=== PATIENT | female | born 1980 | race Caucasian/White ===

== ENCOUNTER 2020-12-13 07:21 | Emergency (ER) | payer OTHER ==
[~2020-12-13] VITALS: Ht 165.1 cm; Wt 86.4 kg
[2020-12-13 07:28] VITALS: BP 104/65; PULSE 89; TEMP 98.2
[2020-12-13] MEDS ORDERED: XYZAL5 MG PO (07:40)
[2020-12-13] MEDS ORDERED: NORCO 325 MG-51 TAB PO (08:38)
== END 2020-12-13 08:52 | disposition home or self-care (01) ==
LOC: COL.ER 07:21
DX: S42.214A Unspecified nondisplaced fracture of surgical neck of right humerus, initial encounter for closed fracture (principal); F17.200 Nicotine dependence, unspecified, uncomplicated; Z88.2 Allergy status to sulfonamides; Z88.8 Allergy status to other drugs, medicaments and biological substances; W10.9XXA Fall (on) (from) unspecified stairs and steps, initial encounter; Y92.009 Unspecified place in unspecified non-institutional (private) residence as the place of occurrence of the external cause

== ENCOUNTER → 2023-02-16 | Outpatient (CLI) | payer OTHER ==
[~2023-02-16] MED LIST: NORCO 325 MG-51 TAB PO; XYZAL5 MG PO
== END ==
LOC: COL.RAD 09:22
DX: K82.8 Other specified diseases of gallbladder (principal)
CPT/HCPCS: A9537; J2805